=== PATIENT | female | born 1950 | race Two or more races ===

== ENCOUNTER 2018-02-05 07:27 | Outpatient (CLI) | payer OTHER | END 2018-02-05 07:38 | disposition home or self-care (01) | LOC: NUCLEAR 07:27 | DX: I11.9 Hypertensive heart disease without heart failure (principal); I20.8 Other forms of angina pectoris; E11.9 Type 2 diabetes mellitus without complications; E78.89 Other lipoprotein metabolism disorders | CPT/HCPCS: 78452; 93017; A9500; J1250 ==